=== PATIENT | female | born 2000 | race Two or more races ===

== ENCOUNTER 2021-06-09 16:43 | Emergency (ER) | payer BC ==
[~2021-06-09] VITALS: Ht 165.1 cm; Wt 80.0 kg
--- NOTE | 2021-06-09 17:10 | NUR ---
PATIENT WALKED BACK FROM [facility] WITH CHIEF C/O ABD CRAMPING. PATIENT RECENTLY FOUND OUT SHE IS , POSITIVE TEST SATURDAY. ABD CRAMPING STARTED SATURDAY, DENIES VAGINAL BLEEDING, NO FEVERS. REPORTS PAINFUL INTERCOURSE AND WHITE VAGINAL DISCHARGE. NADN, CONNECTED TO MONITOR, VSS, CALL LIGHT WITHIN REACH.
--- NOTE | 2021-06-09 17:15 | NUR ---
PATIENT TO ULTRASOUND
[2021-06-09 17:36] LABS: MICROSCOPIC INDICATED
--- NOTE | 2021-06-09 18:12 | NUR ---
PATIENT BACK IN ROOM, RESTING IN [facility], CONNECTED TO MONITOR, VSS, CALL LIGHT WITHIN REACH. PATIENT UP FOR RECHECK.
[2021-06-09 18:34] LABS: BASOPHILS % (AUTO) 1 % (0-1); EOSINOPHILS % (AUTO) 1 % (1-7); LYMPHOCYTES % (AUTO) 37 % (22-44); MEAN CORPUSCULAR HEMOGLOBIN 29.7 pg (27.0-34.8); MEAN CORPUSCULAR HGB CONC 33.9 g/dL (32.4-35.8); MEAN PLATELET VOLUME 8.7 fL (7.4-10.4); MONOCYTES % (AUTO) 8 % (2-9); NEUTROPHILS % (AUTO) 53 % (42-75); PLATELET COUNT 253 x10^3/uL (130-400); RED BLOOD COUNT 4.33 x10^6/uL (3.82-5.3)
[2021-06-09 18:38] LABS: ALANINE AMINOTRANSFERASE 27 U/L (12-78); ALBUMIN 3.1 g/dL (3.4-5.0); ANION GAP 5 mmol/L (5-15); CALCIUM 8.9 mg/dL (8.5-10.1); CHLORIDE 106 mmol/L (98-107)
[2021-06-09 18:56] LABS: ALKALINE PHOSPHATASE 78 U/L (45-117); BILIRUBIN,TOTAL 0.3 mg/dL (0.2-1.0); TOTAL PROTEIN 6.5 g/dL (6.4-8.2)
--- NOTE | 2021-06-09 19:37 | NUR ---
PA AT BS, SET UP FOR PELVIC. PT CONCERNED AT THIS POINT FOR COST. UNDER REVIEW ABOUT PLAN.
--- NOTE | 2021-06-09 19:51 | NUR ---
SET UP FOR PELVIC. PA AWARE.
--- NOTE | 2021-06-09 20:35 | NUR ---
PA AT BS FOR PELVIC.
[2021-06-09 20:39] LABS: CLUE CELLS NONE SEEN (NONE SEEN); WET PREP WBCS FEW (FEW)
[2021-06-09 22:17] VITALS: BP 102/56
== END 2021-06-09 22:19 | disposition home or self-care (01) ==
LOC: ED 16:48
DX: O26.891 Other specified pregnancy related conditions, first trimester (principal); Z91.040 Latex allergy status; Z3A.01 Less than 8 weeks gestation of pregnancy
CPT/HCPCS: 36415; 76801; 80053; 81001; 84702; 85025; 87086; 87210; 87491; 87591; 87808; 99284